=== PATIENT | male | born 1965 | race Caucasian/White ===

== ENCOUNTER 2016-04-22 08:55 | Emergency (ER) | payer OTHER ==
[~2016-04-22] VITALS: Ht 185.4 cm; Wt 113.4 kg
[2016-04-22 09:02] VITALS: BP 154/89
[2016-04-22] MEDS ORDERED: KETOROLAC TROMETHAMINE 60 MG/2 ML SYRINGE. IM ONE (09:30)
[2016-04-22] MEDS ORDERED: MORPHINE SULFATE 10 MG/ML VIAL. IM ONE (09:30)
--- NOTE | 2016-04-22 09:32 | PHYS DOC ---
Past Medical History Past Medical History: Asthma, GERD, Hypertension Past Surgical History: No Surgical History Alcohol Use: None Drug Use: None Adult General Chief Complaint Chief Complaint: KNEE INJURY HPI HPI Patient is a 51 year old male with history of hypertension, acid reflex and asthma who presents with 8 out of 10 left medial knee pain that began yesterday when he stood up from kneeling position. He states he heard a pop sound from the left knee. Patient states he followed up at [facility] last night and was given a cortisone shot in the left knee. Patient states he still has the pain when he woke up this morning. Patient states they did not do any x- rays of the left knee. Review of Systems Review of Systems Constitutional: Denies fever or chills [] Musculoskeletal: Left medial knee pain Integument: Denies rash or skin lesions [] Neurologic: Denies headache, focal weakness or sensory changes [] Endocrine: Denies polyuria or polydipsia [] Current Medications Current Medications Current Medications Medications (Trade) Dose Ordered Sig/Margie Start Time Stop Time Status Last Admin Dose Admin Ketorolac Tromethamine (Toradol Im) 60 mg 1X ONCE 04/22/16 09:30 04/22/16 09:38 DC 04/22/16 09:53 60 MG Morphine Sulfate 5 mg 1X ONCE 04/22/16 09:30 04/22/16 09:38 DC 04/22/16 09:53 5 MG Allergies Allergies Allergies Coded Allergies Type Severity Reaction Last Updated Verified No Known Drug Allergies 02/09/14 No Physical Exam Physical Exam Constitutional: Well developed, well nourished, no acute distress, non-toxic appearance. [] Skin: Warm, dry, no erythema, no rash. [] Back: No tenderness, no CVA tenderness. [] Extremities: Left knee with no obvious deformity. There is a bandage on the anterior aspect of the left knee from the cortisone injection. Mild tenderness on palpation of the left medial knee. Full range of motion to the left knee. Negative Rere sign and negative Stanford's sign negative anterior-posterior drawer sign to the left knee. +2 left pedal pulse. Cap refill less than 2 seconds and left lower extremity. Sensation intact to the left lower extremity. Neurologic: Alert and oriented X 3, normal motor function, normal sensory function, no focal deficits noted. [] Psychologic: Affect normal, judgement normal, mood normal. [] Current Patient Data Vital Signs Vital Signs Date Time Temp Pulse Resp B/P Pulse Ox O2 Delivery O2 Flow Rate FiO2 04/22/16 09:02 98.2 99 20 97 Room Air 98.2 EKG EKG [] Radiology/Procedures Radiology/Procedures []PROCEDURE: KNEE LEFT 4V EXAM: Left knee, 4 views. HISTORY: Pain. COMPARISON: None. FINDINGS: Frontal, lateral, oblique and sunrise views of the left knee are obtained. There is no fracture, dislocation or subluxation. There is minimal medial compartment joint space narrowing. There is no effusion. IMPRESSION: Minimal medial compartment joint space narrowing. DICTATED and SIGNED BY: VIJAY IVAN MD DATE: 04/22/16 1008 CC: JAYDEN MAURICIO MD; LAURY AGUAYO APRN ~ Course & Med Decision Making Course & Med Decision Making Pertinent Labs and Imaging studies reviewed. (See chart for details) Patient is in the ED with left medial pain that began yesterday after he stood up from kneeling position. He was seen at [facility] and given a cortisone shot to the left knee with no relief. He states they did not do any x- rays. Left knee x-ray interpreted by radiologist is noted for -Minimal medial compartment joint space narrowing. Immobilizer was applied to the left lower extremity by the biosolids management technician, neurovascular exam done by me post-immobilizer application is normal, ice elevation encouraged. Crutches provided. Discharged with hydrocodone for pain, he is already on Naproxen. Dragon Disclaimer Dragon Disclaimer This electronic medical record was generated, in whole or in part, using a voice recognition dictation system. Departure Departure Impression: Primary Impression: Knee pain, left Disposition: HOME, SELF-CARE Condition: STABLE Referrals: AYSHA BANUELOS DO (PCP) CARSON OWUSU MD call her office today and get a follow up appointment Patient Instructions: Knee Pain, [id number] Additional Instructions: You were seen for left knee pain. Your x-ray shows a have minimal medial compartment joint space narrowing. Use the immobilizer provided as tolerated. Follow-up with the provided orthopedic doctor by calling the office today to get a follow-up appointment. Scripts Hydrocodone/Apap 5-325 (Merced 5-325 Tablet)1 Each Tablet1-2 Tab PO Q4-6HRS #20 TAB Prov:LAURY AGUAYO RN PALLIATIVE 04/22/16 Problem Qualifiers Primary Impression: Knee pain, left Chronicity: acute Qualified Code: M25.562 - Pain in left knee LAURY AGUAYO RN PALLIATIVE Apr 22, 2016 09:32
--- NOTE | 2016-04-22 10:11 | RAD ---
EXAM: Left knee, 4 views. HISTORY: Pain. COMPARISON: None. FINDINGS: Frontal, lateral, oblique and sunrise views of the left knee are obtained. There is no fracture, dislocation or subluxation. There is minimal medial compartment joint space narrowing. There is no effusion. IMPRESSION: Minimal medial compartment joint space narrowing.
[2016-04-22] MEDS ORDERED: HYDR-971 PO (11:12)
== END 2016-04-22 11:25 | disposition home or self-care (01) ==
LOC: ER 08:55
DX: M25.562 Pain in left knee (principal); I10 Essential (primary) hypertension; J45.909 Unspecified asthma, uncomplicated; K21.9 Gastro-esophageal reflux disease without esophagitis
CPT/HCPCS: 29505; 73564; 96372; 99284; J1885; J2270

== ENCOUNTER → 2016-04-27 | Outpatient (CLI) | payer OTHER ==
[2016-04-22 09:02] VITALS: BP 154/89
[~2016-04-27] MED LIST: HYDR-971 PO
--- NOTE | 2016-04-27 17:04 | KCIC ---
PROCEDURE MRI left knee without contrast dated 04/27/2016. HISTORY Knee pain after twisting injury. TECHNIQUE Routine multiplanar multisequence MR imaging performed. COMPARISON None. FINDINGS Homogeneous signal throughout the visualized bone marrow. No marrow edema. Articular cartilage is intact. No osteochondral defect. Small joint effusion. No significant popliteal cyst. No intra-articular loose body. Anterior cruciate and posterior cruciate ligaments are intact. Medial and lateral collateral complexes are intact. Iliotibial band, popliteus tendon and pes anserine complex within normal limits. Quadriceps and patellar tendon are intact. No abnormality of the medial or lateral retinaculum. Mild edema in the superficial infrapatellar soft tissues, nonspecific. Horizontal oblique tear posterior horn/body of medial meniscus with extension to the tibial articular surface. There may be a small amount of redundant meniscal tissue flipped to the medial gutter. Blunted morphology of the free edge. Medial meniscal root is intact. Lateral meniscus normal in morphology and signal. IMPRESSION - Complex tear posterior horn/body of medial meniscus. There may be a small radial flap component displaced into the medial gutter. - Otherwise no evidence of internal derangement. - Small joint effusion. Electronically signed by: Troy Sahu (Apr 27, 2016 17:00:05)
== END | disposition home or self-care (01) ==
LOC: KCIC MRI 16:04
PROVIDERS: ATTEND Nurse Practitioner Family
DX: M25.562 Pain in left knee (principal); M25.462 Effusion, left knee
CPT/HCPCS: 73721

== ENCOUNTER → 2016-09-30 | Day surgery (SDC) | payer OTHER ==
[~2016-09-30] MED LIST changes: +AMLO2.5T PO; +BUDE10.22 IH; +ESOM20CA PO; +IV RINGERS,LACTATED 1000ML 1,000 ML IV SCH; +LIDOCAINE 1% 1 ML SYRINGE. ID PRN; +LIDOCAINE 2% PF Vial for OR 5 ML VIAL. ONE; +MIDAZOLAM HCL/PF 2 MG/2 ML VIAL. IV PRN; +PROPOFOL 20 ML IV ONE; +VALS40TA2 PO; +fentaNYL PF VIAL 100 MCG/2 ML VIAL IV PRN
[2016-09-30 09:03] VITALS: BP 103/60
--- NOTE | 2016-10-01 05:01 | CONS ---
DATE OF CONSULTATION: 09/30/2016 REFERRING PHYSICIAN: ____ Nathaniel. HISTORY OF PRESENT ILLNESS: This is a 51-year-old male whose past medical history is significant for reflux, hypertension, asthma, seen with epigastric abdominal pain, worsened with eating, not improved with Nexium, has increased bloating and nausea and has had previous reflux in the past as well as gallbladder disease with mother and colon cancer with his father. Fatty and greasy foods are poorly tolerated. With continued symptoms, he requests additional evaluation. He has not undergone screening colonoscopies. No change in bowel habits or bleeding. PAST MEDICAL HISTORY: Asthma, reflux, hypertension. ALLERGIES: None. MEDICATIONS: Include acetaminophen, amlodipine, budesonide, Nexium and Diovan. FAMILY AND SOCIAL HISTORY: He is a smoker and social drinker. PAST SURGICAL HISTORY: None. REVIEW OF SYSTEMS: Per above. PHYSICAL EXAMINATION: GENERAL: Reveals a well-nourished, well-developed male who is alert, cooperative, in no acute distress. VITAL SIGNS: Temp 97.5, pulse 90, respiratory rate is 20. HEENT: Reveals a normocephalic, atraumatic head. Pupils and extraocular muscles not tested. Sclerae anicteric. NECK: Supple. LUNGS: Clear. CARDIOVASCULAR: Reveals an S1, S2 without S3, S4 or appreciable murmur. ABDOMEN: Reveals a soft abdomen, normal bowel sounds, without appreciable hepatosplenomegaly, with epigastric tenderness to deep palpation. EXTREMITIES: Reveals no cyanosis, clubbing or edema. IMPRESSION: 1. Colorectal screening with a family history of colon cancer is warranted at this time. 2. Epigastric abdominal pain with persistent nausea and bloating. Differential includes Walsh's, peptic ulcer disease, gastroparesis, malignancy. Therefore, I would recommend an EGD to further assess. MICHEL PACE MD DR: ADONIS/kristina JOB#: [id number] / [id number]
--- NOTE | 2016-10-04 14:59 | PATHOLOGY ---
PATHOLOGY REPORT * * * * * * * * FINAL DIAGNOSIS: A. Esophageal biopsies, distal esophagus: - Segments of hyperplastic squamous esophageal mucosa with contiguous and separate segments of columnar lined mucosa showing chronic inflammation and focal intestinal metaplasia with goblet cells, consistent with Walsh's change. B. Colorectal biopsy, rectal polyp: - Hyperplastic polyp. C. Colon biopsy, transverse colon polyp: - Tubular adenoma. COMMENT: Sections of the distal esophageal biopsy reveal segments of hyperplastic squamous esophageal mucosa with contiguous and separate segments of columnar lined mucosa showing moderate chronic inflammation and focal intestinal metaplasia with goblet cells consistent with Walsh's change. There is no dysplasia or evidence of malignancy. Sections of the rectal biopsy reveal a hyperplastic polyp. There are no adenomatous changes or evidence of malignancy. Sections of the transverse colon biopsy reveal a tubular adenoma showing no high-grade dysplasia or evidence of malignancy. (JPM:; d/t: 10/04/2016) REPORT ELECTRONICALLY SIGNED BY: Walt Burgess M.D. DATE/TIME: 10/04/2016 14:59 * * * * * * * * GROSS PATHOLOGY: A. Received in formalin labeled "Angelito Macario, distal esophagus," are 3 segments of vieira soft tissue measuring from 0.1 up to 0.3 cm in maximum dimension. The specimen is submitted entirely in cassette A1. B. Received in formalin labeled "rectal polyp," is a segment of vieira soft tissue measuring 0.3 cm in maximum dimension. The specimen is submitted entirely in cassette B1. C. Received in formalin labeled "transverse colon polyp," is a segment of vieira soft tissue measuring 0.4 cm in maximum dimension. The specimen is submitted entirely in cassette C1. (JPM; 10/03/16) INITIAL CPT CODE(S): A; 15064 B; 07899 C; 10131 Professional services performed by [facility] at [facility] [address] [place] [address] Technical services performed by [facility] at [address] [place] [address], [address], [place] [address]. SPECIMEN(S) RECEIVED: A.Distal esophagus B.Rectal polyp C.Transverse colon polyp CLINICAL HISTORY: GERD, colon screen PATIENT: ANGELITO MACARIO /AGE: 12 1965 (Age: 51) PATIENT #: [id number] ALT CASE #: SPECIMEN COLLECTION DATE: 09/30/2016 SPECIMEN RECEIVED DATE: 10/03/2016 [facility] - [address] [address] - PHONE: [phone] * * * END OF REPORT * * *
== END | disposition home or self-care (01) ==
LOC: ENDOS 07:27
PROVIDERS: ATTEND Internal Medicine Gastroenterology
DX: Z12.11 Encounter for screening for malignant neoplasm of colon (principal); D12.3 Benign neoplasm of transverse colon; K62.1 Rectal polyp; K64.0 First degree hemorrhoids; Z80.0 Family history of malignant neoplasm of digestive organs; K21.0 Gastro-esophageal reflux disease with esophagitis; I10 Essential (primary) hypertension; J45.909 Unspecified asthma, uncomplicated
CPT/HCPCS: 43239; 45380; J2704; 88305

== ENCOUNTER 2017-02-28 21:02 | Inpatient (IN) | payer OTHER ==
[~2017-02-28] VITALS: Ht 185.4 cm; Wt 118.5 kg
[~2017-02-28 21:02] MED LIST changes: -IV RINGERS,LACTATED 1000ML 1,000 ML IV SCH; -LIDOCAINE 1% 1 ML SYRINGE. ID PRN; -LIDOCAINE 2% PF Vial for OR 5 ML VIAL. ONE; -MIDAZOLAM HCL/PF 2 MG/2 ML VIAL. IV PRN; -PROPOFOL 20 ML IV ONE; -fentaNYL PF VIAL 100 MCG/2 ML VIAL IV PRN
[2017-02-28] MEDS ORDERED: IV NORMAL SALINE 1000ML BAG 1,000 ML IV SCH (21:07)
[2017-02-28] MEDS ORDERED: NITROGLYCERIN OINT 1 GM PACKET. TP ONE (21:15)
[2017-02-28] MEDS ORDERED: ASPIRIN CHEWABLE 81 MG TABLET. PO ONE (21:15)
--- NOTE | 2017-02-28 21:26 | PHYS DOC ---
Past Medical History Past Medical History: Asthma, GERD, Hypertension Additional Past Surgical Histo: Sinus; TM replacement Smoking: Cigarettes Additional Information: E-cig x 2 years Alcohol Use: Occasionally Drug Use: None Adult General Chief Complaint Chief Complaint: CHEST PAIN HPI HPI Patient is a 51 year old male who presents with chest pain. He states this pain started at 1900 hrs. PM today. The pain is a dull ache left side of his chest. No radiation. It's moderate in pain intensity. He has been off and on for the past several weeks. He's been seen and followed by his personal physician for sinus and respiratory infection. He's been on antibiotics ( Cefdinir) approximately a month and is still presently taking it. He is to see in the office on Monday last week and was started on Lasix due to increased swelling in his lower extremities. He has had no recent travel. Noticed a little bit increased shortness of air today with the chest discomfort. No nausea vomiting. He does continue to smoke however is out E cigarettes presently. Review of Systems Review of Systems Constitutional: Denies fever or chills Eyes: Denies change in visual acuity, redness, or eye pain HENT: POS nasal congestion and sinus congestion; denies sore throat Respiratory: POS cough for the past month; little shortness of breath Cardiovascular: POS chest pain. GI: Denies abdominal pain, nausea, vomiting, bloody stools or diarrhea : Denies dysuria or hematuria Musculoskeletal: Denies back pain or joint pain; increased ankle swelling. Integument: Denies rash or skin lesions Neurologic: Denies headache, focal weakness or sensory changes All other systems were reviewed and found to be within normal limits, except as documented in this note. Family History Family History POS heart disease (Father-age 60) Current Medications Current Medications Current Medications Medications (Trade) Dose Ordered Sig/Margie Start Time Stop Time Status Last Admin Dose Admin Aspirin (Children'S Aspirin) 324 mg 1X ONCE 02/28/17 21:15 02/28/17 21:16 DC 02/28/17 21:36 324 MG Info (Do NOT chart on this entry -- for MONITORING) 1 each PRN DAILY PRN 02/28/17 22:00 03/02/17 21:59 Iohexol (Omnipaque 300 Mg/ml) 75 ml 1X ONCE 02/28/17 22:00 02/28/17 22:01 DC 02/28/17 22:08 75 ML Nitroglycerin (Nitro-Bid Oint) 1 inch 1X ONCE 02/28/17 21:15 02/28/17 21:23 DC 02/28/17 21:36 1 INCH Potassium Chloride (Klor-Con) 20 meq 1X ONCE 02/28/17 21:45 02/28/17 21:55 DC 02/28/17 22:21 20 MEQ Sodium Chloride 1,000 ml @ 100 mls/hr Q10H 02/28/17 21:07 03/01/17 07:06 02/28/17 21:37 100 MLS/HR Allergies Allergies Allergies Coded Allergies Type Severity Reaction Last Updated Verified No Known Drug Allergies 09/30/16 No Physical Exam Physical Exam Constitutional: Well developed, well nourished, no acute distress, non-toxic appearance. HENT: Normocephalic, atraumatic, bilateral external ears normal, oropharynx moist, no oral exudates, nose normal. Eyes: PERRLA, EOMI, conjunctiva normal, no discharge. Neck: Normal range of motion, no tenderness, supple, no stridor. Cardiovascular:Heart rate regular rhythm, no murmur Lungs & Thorax: Bilateral breath sounds clear to auscultation Abdomen: Bowel sounds normal, soft, no tenderness, no masses, no pulsatile masses. Skin: Warm, dry, no erythema, no rash. Back: No tenderness, no CVA tenderness. Extremities: No tenderness, no cyanosis, no clubbing, ROM intact, POS pitting edema bilaterally. Neurologic: Alert and oriented X 3, normal motor function, normal sensory function, no focal deficits noted. Psychologic: Affect normal, judgement normal, mood normal. Current Patient Data Vital Signs Vital Signs Date Time Temp Pulse Resp B/P (MAP) Pulse Ox O2 Delivery O2 Flow Rate FiO2 02/28/17 21:36 103 156/90 02/28/17 21:10 98.3 14 100 Room Air 98.3 Lab Values Laboratory Tests Test 02/28/17 21:20 White Blood Count 11.7 x10^3/uL (4.0-11.0) H Red Blood Count 5.19 x10^6/uL (4.30-5.70) Hemoglobin 15.7 g/dL (13.0-17.5) Hematocrit 45.4 % (39.0-53.0) Mean Corpuscular Volume 87 fL (79-100) Mean Corpuscular Hemoglobin 30 pg (25-35) Mean Corpuscular Hemoglobin Concent 35 g/dL (31-37) Red Cell Distribution Width 12.6 % (11.5-14.5) Platelet Count 283 x10^3/uL (140-400) Neutrophils (%) (Auto) 67 % (31-73) Lymphocytes (%) (Auto) 20 % (24-48) L Monocytes (%) (Auto) 8 % (0-9) Eosinophils (%) (Auto) 3 % (0-3) Basophils (%) (Auto) 1 % (0-3) Neutrophils # (Auto) 7.9 x10^3uL (1.8-7.7) H Lymphocytes # (Auto) 2.4 x10^3/uL (1.0-4.8) Monocytes # (Auto) 1.0 x10^3/uL (0.0-1.1) Eosinophils # (Auto) 0.4 x10^3/uL (0.0-0.7) Basophils # (Auto) 0.2 x10^3/uL (0.0-0.2) Prothrombin Time 12.3 SEC (11.7-14.0) Prothrombin Time INR 1.0 (0.8-1.1) D-Dimer (Elizabeth) 2.05 ug/mlFEU (0.00-0.50) H Sodium Level 138 mmol/L (136-145) Potassium Level 3.2 mmol/L (3.5-5.1) L Chloride Level 100 mmol/L (98-107) Carbon Dioxide Level 30 mmol/L (21-32) Anion Gap 8 (6-14) Blood Urea Nitrogen 15 mg/dL (8-26) Creatinine 1.2 mg/dL (0.7-1.3) Estimated GFR (Cockcroft-Gault) 64.1 BUN/Creatinine Ratio 13 (6-20) Glucose Level 128 mg/dL (70-99) H Calcium Level 9.0 mg/dL (8.5-10.1) Magnesium Level 1.9 mg/dL (1.8-2.4) Total Bilirubin 0.7 mg/dL (0.2-1.0) Aspartate Amino Transferase (AST) 21 U/L (15-37) Alanine Aminotransferase (ALT) 34 U/L (16-63) Alkaline Phosphatase 58 U/L (46-116) Creatine Kinase 134 U/L (39-308) Creatine Kinase MB (Mass) 1.2 ng/mL (0.0-3.6) Creatine Kinase MB Relative Index 0.9 % (0-4) Troponin I Quantitative < 0.017 ng/mL (0.000-0.055) LJ-Pim-O-Type Natriuretic Peptide 7 pg/mL (0-124) Total Protein 7.7 g/dL (6.4-8.2) Albumin 4.4 g/dL (3.4-5.0) Albumin/Globulin Ratio 1.3 (1.0-1.7) Lipase 158 U/L (73-393) Laboratory Tests 02/28/17 21:20 Laboratory Tests 02/28/17 21:20 EKG EKG EKG interpreted by myself at 21:10 PM shows sinus tachycardia, rate of 103, right axis deviation, no significant ST changes. Radiology/Procedures Radiology/Procedures CXR interpreted by myself at 2145 PM: no acute infiltrate; normal mediastinum; normal cardiac silhouette. [facility] [address] [place], [place] [id number] IMAGING REPORT Signed PATIENT: JUSTYN MACARIO ACCOUNT: [id number] : 1965 LOCATION: ER AGE: 51 SEX: M EXAM STATUS: REG ER ORD. PHYSICIAN: TAI PARKER MD REASON: elev d dimer; chest pain; recent pulm infection PROCEDURE: CT ANGIOGRAPHY CHEST CTA scan of the Chest with Contrast (Pulmonary Embolism protocol) 02/28/2017 Clinical History: Chest pain and shortness of breath. Elevated d-dimer. Technique: After the intravenous administration of 75 cc of Isovue-370, contiguous, 0.625 mm axial sections were obtained through the chest. 2 mm axial and 3D MIP coronal and sagittal reconstructed images were obtained. One or more of the following individualized dose reduction techniques were utilized for this study: 1. Automated exposure control. 2. Adjustment of the mA and/or kV according to patient size. 3. Use of iterative reconstruction technique. Findings: No filling defect is seen within the major branches of either pulmonary artery. There is no CT evidence of pulmonary embolism. The thoracic aorta is mildly tortuous. Atherosclerotic calcification of the thoracic aorta is seen. The thoracic aorta tapers normally. The heart is borderline enlarged. Minimal dependent subsegmental atelectasis is seen involving both lungs. No area of consolidation, pleural effusion or pneumothorax is seen. Impression: There is no CT evidence of pulmonary embolism. Electronically signed by: Juan Allen MD (02/28/2017 10:28 PM) [facility] DICTATED and SIGNED BY: JUAN ALLEN MD DATE: 02/28/172218 CC: TAI PARKER MD; AYSHA BANUELOS DO ~ Course & Med Decision Making Course & Med Decision Making Evaluated patient upon arrival. Nitropaste and ASA dosed. He is active [place] and [place] [facility] and has a cardiology evaluation scheduled for next week. Concerned that his condition has changed with pedal edema ( recent addition of Lasix) and now chest pain. last stress test 7 years ago. Patient states cholesterol status "OK". At 2145 PM: K slightly low; po replacement given. At 2150 PM: D dimer quite elevated. Due to recent lingering respiratory complaints will check CT to r/o PE. At 2230 PM: Ct angio negative for PE. Patient very high risk for coronary event. Reviewed findings with patient and spouse and recommendation for admission. BP 126/72 on nitro; P 104, sat 97% and is PAIN FREE. Will admit; spoke w Dr Jennings for admission. I have spoken with the patient and/or caregivers. I have explained the patient' s condition, diagnosis and treatment plan based on the information available to me at this time. I have answered the patient's and/or caregiver's questions and addressed any concerns. The patient and/or caregivers have as good an understanding of the patient's diagnosis, condition and treatment plan as can be expected at this point. The patient has been stabilized within the capability of the emergency department. The patient will be transported for further care and management or will be moved to an observation or inpatient service. I have communicated with the staff or medical practitioner taking over this patient's care. I have assessed this patient clinically and believe that their condition requires admission to the hospital. After consulting the admitting physician about this case, they have asked that I admit this patient to their service as an inpatient based on the clinical presentation and my impression. I spent approximately 30 minutes working and engaged directly in the patient care providing critical care evaluation this includes but not limited to time spent engaged in work directly related to the individual patients care. I spent time at the bedside, reviewing test results, discussing the case with staff, documenting the medical record and time spent with EMS discussing specific treatment issues when the patient presented and during his evaluation. This includes any discussion and updates with family members and/or patient. MACE Scoring: History: Highly suspicious (2 points); Moderately suspicious (1 point). Slightly suspicious (0 point). EKG: ST segment depression (2 points). Nonspecific repolarization disturbance ( 1 point). normal (0 point) Age: Greater than 65 (2 points), 65-45 (1 point); less than 45 years old (0 points). Risk factors:> 3 risk factors (2 points), 1-2 risk factors (one point), no risk factors (0 point). (HTN, Tob use, FH) Troponin: > 2 times normal (2 points), 1-2 times normal (1 point) normal limits (0 point) Total score: 5_ Score % pts MACE/n MACE Policy 0-3: 32% 1.9% 0.05% Discharge 4-6: 51% 413/3136 13% 1.3% Observation Risk management 7-10: 17% 518/1045 50% 2.8% Observation Treatment, CAGb PERC Criteria Assessment: Age > 50: No HR > 100: YES 02 < 95%: No H/o DVT/PE: No Recent trauma/surgery: No Hemoptysis No Exogenous Estrogen: No Unilateral Leg swelling: No Pretest probability > 15%: No PERC rule not satisfied EDGAR score for NSTEMI: Age 65: No=0; Yes=1 3 CAD risk factors: Family history of CAD, hypertension, hypercholesterolemia, diabetes, family history of CAD, or current smoker: No=0; Yes=1 Known CAD (stenosis 50%: No=0; Yes=1 ASA use in past 7 days: No=0; Yes=1 Severe angina ( 2 episodes in 24 hrs): No=0; Yes=[address] changes 0.5m: No=0; Yes=1 Positive cardiac marker: No=0; Yes=1 Score: 1 Dragon Disclaimer Dragon Disclaimer This electronic medical record was generated, in whole or in part, using a voice recognition dictation system. Departure Departure Impression: Primary Impression: Chest pain Additional Impressions: Accelerated essential hypertension Elevated d-dimer Tachycardia Disposition: ADMITTED INPATIENT Admitting Physician: Valerie Jennings Condition: STABLE Referrals: TRACY SALEEM MD (PCP) Problem Qualifiers Primary Impression: Chest pain Chest pain type: unspecified Qualified Codes: R07.9 - Chest pain, unspecified TAI PARKER MD Feb 28, 2017 21:25
[2017-02-28 21:31] LABS: BASO # 0.2 x10^3/uL (0.0-0.2); BASO % 1 % (0-3); EOS % 3 % (0-3); HEMATOCRIT 45.4 % (39.0-53.0); HEMOGLOBIN 15.7 g/dL (13.0-17.5); LYMPH # 2.4 x10^3/uL (1.0-4.8); LYMPH % 20 % (24-48); MEAN CORPUSCULAR HEMOGLOBIN 30 pg (25-35); MEAN CORPUSCULAR HGB CONC 35 g/dL (31-37); MEAN CORPUSCULAR VOLUME 87 fL (79-100); MONO % 8 % (0-9); NEUT % 67 % (31-73); PLATELET COUNT 283 x10^3/uL (140-400); RED BLOOD COUNT 5.19 x10^6/uL (4.30-5.70); RED CELL DISTRIBUTION WIDTH 12.6 % (11.5-14.5); WHITE BLOOD COUNT 11.7 x10^3/uL (4.0-11.0)
[2017-02-28 21:40] LABS: PROTHROMBIN TIME PATIENT 12.3 SEC (11.7-14.0)
[2017-02-28 21:43] LABS: CREATININE 1.2 mg/dL (0.7-1.3); GFR 64.1; POTASSIUM 3.2 mmol/L (3.5-5.1)
[2017-02-28] MEDS ORDERED: POTASSIUM CHLORIDE 20 MEQ TABLET.ER. PO ONE (21:45)
[2017-02-28 21:49] LABS: ALBUMIN 4.4 g/dL (3.4-5.0); ALBUMIN/GLOBULIN RATIO 1.3 (1.0-1.7); MAGNESIUM 1.9 mg/dL (1.8-2.4); TOTAL BILIRUBIN 0.7 mg/dL (0.2-1.0); TOTAL PROTEIN 7.7 g/dL (6.4-8.2)
[2017-02-28 21:59] LABS: CKMB MASS 1.2 ng/mL (0.0-3.6)
[2017-02-28] MEDS ORDERED: IOHEXOL 300 MG/ML 100ML VIAL. IV ONE (22:00)
[2017-02-28] MEDS ORDERED: CONTRAST GIVEN MC PRN (22:00)
--- NOTE | 2017-02-28 22:31 | RAD ---
CTA scan of the Chest with Contrast (Pulmonary Embolism protocol) 02/28/2017 Clinical History: Chest pain and shortness of breath. Elevated d-dimer. Technique: After the intravenous administration of 75 cc of Isovue-370, contiguous, 0.625 mm axial sections were obtained through the chest. 2 mm axial and 3D MIP coronal and sagittal reconstructed images were obtained. One or more of the following individualized dose reduction techniques were utilized for this study: 1. Automated exposure control. 2. Adjustment of the mA and/or kV according to patient size. 3. Use of iterative reconstruction technique. Findings: No filling defect is seen within the major branches of either pulmonary artery. There is no CT evidence of pulmonary embolism. The thoracic aorta is mildly tortuous. Atherosclerotic calcification of the thoracic aorta is seen. The thoracic aorta tapers normally. The heart is borderline enlarged. Minimal dependent subsegmental atelectasis is seen involving both lungs. No area of consolidation, pleural effusion or pneumothorax is seen. Impression: There is no CT evidence of pulmonary embolism. Electronically signed by: Juan Allen MD (02/28/2017 10:28 PM) [facility]
[2017-02-28] MEDS ORDERED: MORPHINE SULFATE 2 MG/ML DISP.SYRIN. IV PRN (23:00)
[2017-02-28] MEDS ORDERED: ONDANSETRON PF 4 MG/2 ML VIAL. IV PRN (23:00)
[2017-03-01 00:46] VITALS: BP 111/69
[2017-03-01 03:03] VITALS: BP 103/68
[2017-03-01] MEDS ORDERED: ZOLP5TAB PO (05:55)
[2017-03-01] MEDS ORDERED: VALS1TAB33 PO (05:55)
[2017-03-01] MEDS ORDERED: FURO-69 PO (05:55)
[2017-03-01] MEDS ORDERED: CEFD300C PO (05:55)
[2017-03-01] MEDS ORDERED: GUAI600T47 PO (05:55)
--- NOTE | 2017-03-01 06:17 | EKG ---
[facility] [address] [place] [address] Test Date: 2017-02-28 Test Time: 21:10:28 Pat Name: JUSTYN MACARIO Department: Room: 256 1 Gender: M Recreation Facility Attendant: : 1965 Requested By: TAI PARKER Order Number: [id number] Reading MD: Rafat Kumar Measurements Intervals [place] Rate: 103 P: 145 ID: 158 QRS: 154 QRSD: 100 T: 141 QT: 340 QTc: 447 Interpretive Statements SINUS TACHYCARDIA LEFT ATRIAL ABNORMALITY ABNORMAL RIGHT AXIS DEVIATION ABNORMAL ECG Electronically Signed On 03-13-2017 13:59:15 CASE PICKER by Rafat Kumar
[2017-03-01 07:00] VITALS: BP 114/54
--- NOTE | 2017-03-01 07:42 | RAD ---
EXAM: Chest one view. HISTORY: Chest pain. COMPARISON: None. FINDINGS: A frontal view of the chest is obtained. There are no confluent infiltrates. There is no pneumothorax or pleural effusion. The heart is not enlarged. IMPRESSION: 1. No confluent infiltrates.
[2017-03-01 10:16] LABS: CHOLESTEROL/HDL RATIO 7.3
--- NOTE | 2017-03-01 10:27 | EKG ---
[facility] [address] [place] [address] Test Date: 2017-03-01 Test Time: 10:23:52 Pat Name: JUSTYN MACARIO Department: Room: 256 1 Gender: M Shoe Shanker: URSZULA : 1965 Requested By: ANASTASIA REAGAN Order Number: [id number] Reading MD: Rafat Kumar Measurements Intervals [place] Rate: 82 P: 49 VT: 162 QRS: 23 QRSD: 98 T: 26 QT: 384 QTc: 452 Interpretive Statements SINUS RHYTHM Electronically Signed On 03-13-2017 14:01:23 PRICING SPECIALIST by Rafat Kumar
--- NOTE | 2017-03-01 10:29 | PDOC2 ---
CARDIAC CONSULT DATE OF CONSULT Date of Consult DATE: 03/01/17 TIME: 09:49 REASON FOR CONSULT Reason for Consult: Multiple risk factors with CP REFERRING PHYSICIAN Referring Physician: Mitchell SOURCE Source: Chart review, Patient HISTORY OF PRESENT ILLNESS HISTORY OF PRESENT ILLNESS This is a pleasant 51 yo male admitted for complains of chest pain. Reports that he has been treated for COPD with last steroid use 2 weeks ago. His cough got better but restarted again and recently with sinus congestion and postnasal drip. He has been taking his inhalers but also has been smoking tobacco and E- cigg. Reports that he has nasal congestion has progressed to his chest and has been coughing but could not quite expectorate. Denies any fever or chills. In the last 2-3 weeks he has been having TAN more so that he could not take a deep breath due to his congestion. He is midway on his antibiotic treatment. Also he has noted in the past 2 weeks that he has been having this pinching left ribcage discomfort shooting in consistency and now having midsternal dull achy discomfort that comes and goes. Also has been feeling more tired that usual. Denies any nausea, palpitations, arm or jaw pain and no diaphoresis or dizziness. PAST MEDICAL HISTORY Cardiovascular: HTN, Hyperlipidemia Pulmonary: Asthma, Bronchitis, COPD, Other (ROSHNI) CENTRAL NERVOUS SYSTEM: Other (No pertinent history) GI: GERD Heme/Onc: No pertinent hx Hepatobiliary: No pertinent hx Psych: No pertinent hx Musculoskeletal: low back pain, Other (sciatica) Rheumatologic: No pertinent hx Infectious disease: No pertinent hx ENT: Sincusitis, Allergic Rhinitis Renal/: Other (ED) Endocrine: No pertinent hx Dermatology: No pertinent hx PAST SURGICAL HISTORY Past Surgical History: Other (tympanic tubes) FAMILY HISTORY Family History: Coronary Artery Disease (father and grandfather) SOCIAL HISTORY Smoke: <1 pack per day ALCOHOL: occassional Drugs: None Lives: with Family CURRENT MEDICATIONS CURRENT MEDICATIONS Current Medications Medications (Trade) Dose Ordered Sig/Margie Route PRN Reason Start Time Stop Time Status Last Admin Dose Admin Aspirin (Children'S Aspirin) 324 mg 1X ONCE PO 02/28/17 21:15 02/28/17 21:16 DC 02/28/17 21:36 Sodium Chloride 1,000 ml @ 100 mls/hr Q10H IV 02/28/17 21:07 03/01/17 07:06 DC 02/28/17 21:37 Nitroglycerin (Nitro-Bid Oint) 1 inch 1X ONCE TP 02/28/17 21:15 02/28/17 21:23 DC 02/28/17 21:36 Potassium Chloride (Klor-Con) 20 meq 1X ONCE PO 02/28/17 21:45 02/28/17 21:55 DC 02/28/17 22:21 Iohexol (Omnipaque 300 Mg/ml) 75 ml 1X ONCE IV 02/28/17 22:00 02/28/17 22:01 DC 02/28/17 22:08 ALLERGIES ALLERGIES: Coded Allergies: No Known Drug Allergies (Unverified , 09/30/16) ROS Review of System 14 point ROS evaluated with pertinent positives noted per HPI PHYSICAL EXAM General: Alert, Oriented X3, Cooperative, No acute distress HEENT: Atraumatic, Mucous membr. moist/pink Lungs: Clear to auscultation, Normal air movement Heart: Regular rate (SR), Normal S1, Normal S2, No murmurs Abdomen: Soft, No tenderness Extremities: No cyanosis, No edema Skin: No breakdown, No significant lesion Neuro: Normal speech, Sensation intact Psych/Mental Status: Mental status NL, Mood NL MUSCULOSKELETAL: Osteoarthritic changes both hands VITALS VITALS Vital Signs Date Time Temp Pulse Resp B/P (MAP) Pulse Ox O2 Delivery O2 Flow Rate FiO2 03/01/17 07:00 97.4 84 20 114/54 (74) 96 Room Air 97.4 LABS Lab: Laboratory Tests Test 02/28/17 21:20 03/01/17 03:00 03/01/17 05:55 White Blood Count 11.7 x10^3/uL (4.0-11.0) Red Blood Count 5.19 x10^6/uL (4.30-5.70) Hemoglobin 15.7 g/dL (13.0-17.5) Hematocrit 45.4 % (39.0-53.0) Mean Corpuscular Volume 87 fL (79-100) Mean Corpuscular Hemoglobin 30 pg (25-35) Mean Corpuscular Hemoglobin Concent 35 g/dL (31-37) Red Cell Distribution Width 12.6 % (11.5-14.5) Platelet Count 283 x10^3/uL (140-400) Neutrophils (%) (Auto) 67 % (31-73) Lymphocytes (%) (Auto) 20 % (24-48) Monocytes (%) (Auto) 8 % (0-9) Eosinophils (%) (Auto) 3 % (0-3) Basophils (%) (Auto) 1 % (0-3) Neutrophils # (Auto) 7.9 x10^3uL (1.8-7.7) Lymphocytes # (Auto) 2.4 x10^3/uL (1.0-4.8) Monocytes # (Auto) 1.0 x10^3/uL (0.0-1.1) Eosinophils # (Auto) 0.4 x10^3/uL (0.0-0.7) Basophils # (Auto) 0.2 x10^3/uL (0.0-0.2) Prothrombin Time 12.3 SEC (11.7-14.0) Prothromb Time International Ratio 1.0 (0.8-1.1) D-Dimer (Elizabeth) 2.05 ug/mlFEU (0.00-0.50) Sodium Level 138 mmol/L (136-145) Potassium Level 3.2 mmol/L (3.5-5.1) Chloride Level 100 mmol/L (98-107) Carbon Dioxide Level 30 mmol/L (21-32) Anion Gap 8 (6-14) Blood Urea Nitrogen 15 mg/dL (8-26) Creatinine 1.2 mg/dL (0.7-1.3) Estimated GFR (Cockcroft-Gault) 64.1 BUN/Creatinine Ratio 13 (6-20) Glucose Level 128 mg/dL (70-99) Calcium Level 9.0 mg/dL (8.5-10.1) Magnesium Level 1.9 mg/dL (1.8-2.4) Total Bilirubin 0.7 mg/dL (0.2-1.0) Aspartate Amino Transf (AST/SGOT) 21 U/L (15-37) Alanine Aminotransferase (ALT/SGPT) 34 U/L (16-63) Alkaline Phosphatase 58 U/L (46-116) Creatine Kinase 134 U/L (39-308) Creatine Kinase MB (Mass) 1.2 ng/mL (0.0-3.6) Creatine Kinase MB Relative Index 0.9 % (0-4) Troponin I Quantitative < 0.017 ng/mL (0.000-0.055) 0.017 ng/mL (0.000-0.055) 0.021 ng/mL (0.000-0.055) FZ-Qln-I-Type Natriuretic Peptide 7 pg/mL (0-124) Total Protein 7.7 g/dL (6.4-8.2) Albumin 4.4 g/dL (3.4-5.0) Albumin/Globulin Ratio 1.3 (1.0-1.7) Lipase 158 U/L (73-393) ASSESSMENT/PLAN ASSESSMENT/PLAN 1. Atypical CP:Likely GI/MSK. Troponin series normal. Doubt ACS. 2. AECOPD/URI: midway on his home po antibiotics 3. HTN: controlled 4. HLP: now unmedicated. 5. Tobaccoism: 45 pk yr and now alternating with E-cigg and tobacco 6. Possible GERD exacerbation with hx of Bar[place] 7. Chronic NSAID use: takes naproxen bid 8. ROSHNI: suppose to use mouth airway adapter but has not been using 9. Aortic calcification: per CTA Recommendations 1. Resume BP meds and PPI 2. Repeat EKG, TTE today. 3. Smoking cessation 4. TSH, lipid panel. 5. With significant cardiac risk factors with TAN/fatigue, will proceed with MPI and completely rule out any underlying ischemia (last stress test 7 yrs ago) Problems: ANASTASIA REAGAN APRN Mar 01, 2017 10:29
[2017-03-01 10:35] LABS: CALCIUM 9.1 mg/dL (8.5-10.1); CREATININE 1.2 mg/dL (0.7-1.3); GFR 64.1; POTASSIUM 3.8 mmol/L (3.5-5.1)
[2017-03-01] MEDS ORDERED: PANTOPRAZOLE 40 MG TABLET.DR. PO SCH ×2 (10:45→16:30)
[2017-03-01 11:00] VITALS: BP 134/79
--- NOTE | 2017-03-01 11:01 | CARD ---
APPROVED REPORT EXAM: Two-dimensional and M-mode echocardiogram with Doppler and color Doppler. Other Information Quality : Average Rhythm : NSR INDICATION Chest Pain 2D DIMENSIONS RVDd2.5 (2.9-3.5cm)Left Atrium(2D)3.1 (1.6-4.0cm) IVSd0.9 (0.7-1.1cm)Aortic Root(2D)3.2 (2.0-3.7cm) LVDd5.3 (3.9-5.9cm)LVOT Diameter2.1 (1.8-2.4cm) PWd0.9 (0.7-1.1cm)LVDs3.9 (2.5-4.0cm) FS (%) 25.1 %SV65.7 ml LVEF(%)49.2 (>50%) Aortic Valve AoV Peak Lewis.109.7cm/sAoV VTI21.0cm AO Peak GR.4.8mmHgLVOT Peak Lewis.96.4cm/s LVOT VTI 19.66cmAO Mean GR.3mmHg YINA (VMAX)3.97fo3ONH (VTI)3.34cm2 Mitral Valve MV E Whoozgqr21.6cm/sMV DECEL SIYJ038xc MV A Gfezmnqn70.3cm/sMV JBW48pl E/A Ratio1.0MV A Oxixlcif577on MVA (PHT)4.88cm2 TDI E/Lateral E'6.8E/Medial E'7.6 LEFT VENTRICLE The left ventricle is normal size. There is normal left ventricular wall thickness. Left ventricle sy stolic function is grossly normal. EF 55% There is grossly normal LV segmental wall motion. Tissue Do ppler imaging reveals mild left ventricular diastolic dysfunction. There is no ventricular septal def ect visualized. RIGHT VENTRICLE The right ventricle is normal size. The right ventricular systolic function is normal. ATRIA The left atrium size is normal. The right atrium size is normal. The interatrial septum is intact wit h no evidence for an atrial septal defect or patent foramen ovale as noted on 2-D or Doppler imaging. AORTIC VALVE The aortic valve is not well visualized. Doppler and Color Flow revealed no significant aortic regurg itation. There is no significant aortic valvular stenosis. MITRAL VALVE The mitral valve is normal in structure and function. There is no mitral valve stenosis. Doppler and Color Flow revealed trace mitral regurgitation. TRICUSPID VALVE The tricuspid valve is normal in structure and function. Doppler and Color Flow revealed no tricuspid valve regurgitation noted. Unable to estimate PA pressure. There is no tricuspid valve stenosis. PULMONIC VALVE The pulmonic valve is not well visualized. Doppler and Color Flow revealed no pulmonic valvular regur gitation. There is no pulmonic valvular stenosis. GREAT VESSELS The aortic root is normal in size. Pulmonary vein flow not well visualized. The IVC is normal in size and collapses >50% with inspiration. PERICARDIAL EFFUSION There is no evidence of significant pericardial effusion. Critical Notification Critical Value: No <Conclusion> Left ventricle systolic function is grossly normal. EF 55% There is grossly normal LV segmental wall motion.
[2017-03-01] MEDS ORDERED: REGADENOSON 0.4 MG/5 ML DISP.SYRIN. IV ONE (11:30)
[2017-03-01] MEDS ORDERED: ZOLPIDEM 5 MG TABLET. PO PRN (12:30)
[2017-03-01] MEDS ORDERED: HYDROcodone/APAP 5/325MG 1 TAB TABLET PO PRN ×2 (12:30→12:45)
[2017-03-01] MEDS ORDERED: amLODIPine BESYLATE 2.5 MG TABLET PO SCH (13:00)
[2017-03-01] MEDS: ALBUTEROL SULFATE 2.5 MG/3 ML NEBU. NEB SCH ×2 (13:00→16:00)
[2017-03-01] MEDS ORDERED: BUDESONIDE 0.5 MG/2 ML NEBU. NEB SCH (13:00)
[2017-03-01] MEDS ORDERED: FUROSEMIDE 20 MG TABLET PO SCH (13:00)
[2017-03-01] MEDS ORDERED: LOSARTAN POTASSIUM 25 MG TABLET. PO SCH (13:00)
--- NOTE | 2017-03-01 14:41 | SSS ---
ADMIT DATE: 03/01/2017 CHIEF COMPLAINT: Chest pain. HISTORY OF PRESENT ILLNESS: The patient is a pleasant 51-year-old male who presents with chest pain started about 7:00 last night. He tried taking his home meds but that did not help. He had some achiness in his chest and arm. It has actually been coming on for a couple of weeks intermittently. I discussed the case with the ER physician. We have admitted the patient and will be consulting cardiology. The patient is going for a stress test. PAST MEDICAL HISTORY: Asthma, GERD, hypertension, TMJ, sinusitis, ED, intermittent tobacco abuse. ALLERGIES: None. FAMILY HISTORY: Diabetes. SOCIAL HISTORY: He has been for 12 years. He does not drink. He smokes socially. No drugs. He is retired . MEDICATIONS: Reviewed. REVIEW OF SYSTEMS: GENERAL: No history of weight change, weakness or fevers. SKIN: No bruising, hair changes or rashes. EYES: No blurred, double or loss of vision. NOSE AND THROAT: No history of nosebleeds, hoarseness or sore throat. HEART: No history of palpitations, chest pain or shortness of breath on exertion. LUNGS: Denies cough, hemoptysis, wheezing or shortness of breath. GASTROINTESTINAL: Denies changes in appetite, nausea, vomiting, diarrhea or constipation. GENITOURINARY: No history of frequency, urgency, hesitancy or nocturia. NEUROLOGIC: Denies history of numbness, tingling, tremor or weakness. PSYCHIATRIC: No history of panic, anxiety or depression. ENDOCRINE: No history of heat or cold intolerance, polyuria or polydipsia. EXTREMITIES: Denies muscle weakness, joint pain, pain on walking or stiffness. PHYSICAL EXAMINATION: VITAL SIGNS: Temperature afebrile, pulse 92, respirations 18, blood pressure 136/70. GENERAL: He is alert, cooperative. His is present. HEART: Normal S1, S2. LUNGS: Clear. ABDOMEN: Soft. EXTREMITIES: No edema. SKIN: No rashes. ENDOCRINE: No thyromegaly. LYMPHATICS: No cervical nodes. HEMATOPOIETIC: No bruising. PSYCHIATRIC: He is stable. ASSESSMENT AND PLAN: Chest pain, rule out coronary artery disease. The patient has been admitted. We are checking serial enzymes, serial EKGs. Consult Cardiology. He went for a stress test this morning. If that is negative, we plan to discharge; if he goes, we will have him see his doctor in a week. DISPOSITION: Home. ACTIVITY: As tolerated. DIET: Low sodium. MEDICATIONS: Please see MRAD. NIAL Leonard CHAVEZ DO DR: TANIA/kristina JOB#: [id number] / [id number]
[2017-03-01 14:53] VITALS: BP 157/85
--- NOTE | 2017-03-01 15:20 | RAD ---
APPROVED REPORT Test Type: Pharmacological Stress Nurse/Tech: April Lopez R.N. Test Indications: chest pain Cardiac History: asthma, htn,, smoker Medications: see ehr Medical History: see ehr Resting ECG: sr Resting Heart Rate: 83 bpm Resting Blood Pressure: 133/62mmHg Pretest Chest Pain: No chest pain Nurse/Tech Notes lungs cta, heart tones regular Consent: The procedure was explained to the patient in lay terms. Informed consent was witnessed. Isaiah eout was entered into [employer]. History and Stress Test performed by GATO Chappell, ARRT (R) (N) Pharm. Details Pharmacologic stress testing was performed using 0.4mg per 5ml of regadenoson given intravenously ove r 7-10 seconds. Stress Symptoms No chest pain or symptoms. POST EXERCISE Reason for Termination: Infusion complete Target HR: No Max HR: 112 bpm Max Blood Pressure: 146/74mmHg Chest Pain: No. Arrhythmia: No. ST Change: No. INTERPRETATION Stress EKG Conclusion: Baseline EKG showed sinus rhythm. No ischemic changes at peak stress. No arr hythmias. Imaging Protocol IMAGE PROTOCOL: Rest Tc-99m/stress Tc-99m 1 day Rest: Stress: Viability: Radiopharm.Tc99m CjkyvfvvbXd25a Sestamibi Dose11.1mCi 34mCi Img Date 03/01/2017 03/01/2017 Inj-Img [id number]. 60min. Rest Admin Site:IV - Right HandAdministrator:LINUS Allison Stress Admin Site: IV - Right HandAdministrator: GATO Chappell, ARRT (R)(N) STRESS DATA End Diast. Vol.105.0mlAv. Heart Rate87.0bpm End Syst. Vol.23.0mlCO Index BSA7.2L/min Myocardial Tjnb725.0gEject. Ratnuglg45.0% Stress Rates Pk. Fill Rate2.18EDV/secLVtime Pk. Fill 135.90msec Pk. Empty Rate4.41ESV/secLVtime Pk. Adtto364.62msec 04/12 Pk. Fill1.90EDV/sec Stress Scores Regional WT0.00Summed WT4.00 Regional WM0.00Summed WM0.00 Study quality was good. Left Ventricular size was Normal at Rest and Stress. Lung uptake was Normal. Left Ventricular ejection fraction is 78%. The rest and stress images show normal perfusion, normal contraction and thickening. LV Perf. Quant 17 Seg. SSS0.00 17 Seg. SRS0.00 17 Seg. SDS0.00 Stress Defect Extent (% LAD)0.00Rest Defect Extent (% LAD)0.00Rev. Defect Extent (% LAD)0.00 Stress Defect Extent (% LCX) 0.00Rest Defect Extent (% LCX)0.00Rev. Defect Extent (% LCX)0.00 Stress Defect Extent (% RCA)0.00Rest Defect Extent (% RCA)0.00Rev. Defect Extent (% RCA)0.00 Stress Defect Extent (% REJI)0.00Rest Defect Extent (% REJI)0.00Rev. Defect Extent (% REJI)0.00 Conclusion 1. Regadenoson cardioisotope stress test did not show any evidence of ischemia or infarct. 2. Normal left ventricular systolic function with ejection fraction calculated at 78%. 3. Low risk for cardiac events.
[2017-03-01] MEDS ORDERED: NON FORMULARY ITEM (Budesonide/Formoterol Fumarate (Symbicort 80-4.5 Mcg Inhaler) 2 PUFF) IH SCH (21:00)
== END 2017-03-01 16:50 | disposition home or self-care (01) | DRG 392 ==
LOC: ER 21:02 → 2 SOUTH 23:48
PROVIDERS: ADMIT Internal Medicine; ATTEND Internal Medicine
DX: K21.9 Gastro-esophageal reflux disease without esophagitis (principal); J44.1 Chronic obstructive pulmonary disease with (acute) exacerbation; I25.10 Atherosclerotic heart disease of native coronary artery without angina pectoris; E78.5 Hyperlipidemia, unspecified; F17.210 Nicotine dependence, cigarettes, uncomplicated; I10 Essential (primary) hypertension; G47.33 Obstructive sleep apnea (adult) (pediatric); M54.40 Lumbago with sciatica, unspecified side; I70.0 Atherosclerosis of aorta; J06.9 Acute upper respiratory infection, unspecified; Z82.49 Family history of ischemic heart disease and other diseases of the circulatory system; Z83.3 Family history of diabetes mellitus; Z79.1 Long term (current) use of non-steroidal anti-inflammatories (NSAID); Z71.6 Tobacco abuse counseling
CPT/HCPCS: 36415; 71010; 71275; 78452; 80048; 80053; 80061; 82553; 83690; 83735; 83880; 84443; 84484; 85025; 85379; 85610; 93005; 93017; 93306; 94250; 94640; 96360; 96361; 96374; 96375; 96376; A9500; J2785; J7030; Q9967; 99291-25

== ENCOUNTER 2017-10-20 17:33 | Emergency (ER) | payer OTHER ==
[2017-10-20] MEDS: CEPHALEXIN 250 MG CAPSULE. PO (18:52)
== END 2017-10-20 19:12 | disposition home or self-care (01) ==
LOC: ER 17:33
DX: L03.031 Cellulitis of right toe (principal); B35.1 Tinea unguium; I10 Essential (primary) hypertension; K21.9 Gastro-esophageal reflux disease without esophagitis; J45.909 Unspecified asthma, uncomplicated
CPT/HCPCS: 99283